=== PATIENT | female | born 1990 | race Two or more races ===

== ENCOUNTER 2017-01-05 20:11 | Emergency (ER) | payer MEDICAID, OTHER ==
[~2017-01-05] VITALS: Ht 162.6 cm; Wt 88.2 kg
[2017-01-05] MEDS ORDERED: ONDANSETRON HCL 4 MG TABLET PO ONE (20:45)
[2017-01-05 20:52] LABS: BASOPHILS % (AUTO) 0.6 % (0.0-2.0); EOSINOPHILS % (AUTO) 0.7 % (1.0-6.0); HEMATOCRIT 36.2 % (36-46); HEMOGLOBIN 11.9 g/dL (12.0-16.0); LYMPHOCYTES # (AUTO) 3.6 K/uL (1.0-4.8); LYMPHOCYTES % (AUTO) 26.9 % (22.0-44.0); MEAN CORPUSCULAR HEMOGLOBIN 29.3 pg (26.0-34.0); MEAN CORPUSCULAR HGB CONC 32.9 G/dL (31.0-37.0); MEAN CORPUSCULAR VOLUME 89 fL (80-100); MONOCYTES # (AUTO) 0.8 K/uL (0.1-1.0); MONOCYTES % (AUTO) 6.2 % (2.0-9.0); NEUTROPHILS # (AUTO) 8.8 K/uL (1.8-7.7); NEUTROPHILS % (AUTO) 65.6 % (40.0-70.0); PLATELET COUNT (AUTO) 427 K/uL (150-450); RED BLOOD CELL COUNT(AUTO) 4.05 MIL/uL (4.00-5.20); RED CELL DISTRIBUTION WIDTH 13.3 % (11.5-14.5); WHITE BLOOD COUNT (AUTO) 13.4 K/uL (4.5-11.0)
[2017-01-05 21:03] LABS: ANION GAP 10 mmol/L (8-16); CALCIUM, TOTAL 8.5 mg/dL (8.8-10.5); CARBON DIOXIDE 25 mmol/L (22-29); CHLORIDE 100 mmol/L (98-107); CREATININE 0.71 mg/dL (0.60-1.30); GLOMERULAR FILTR. RATE CALC > 60 mL/min (>60); POTASSIUM 3.7 mmol/L (3.5-5.1); SODIUM SERUM 135 mmol/L (136-145); UREA NITROGEN, BLOOD 12 mg/dL (7-18)
[2017-01-05 21:10] LABS: ALANINE AMINOTRANSFERASE 17 U/L (12-78); ALBUMIN 3.3 g/dL (3.4-5.0); ASPARTATE AMINOTRANSFERASE 14 U/L (15-37); BILIRUBIN,TOTAL 0.2 mg/dL (0.1-1.0); TOTAL PROTEIN, SERUM 7.3 g/dL (6.4-8.2)
[2017-01-05 22:21] VITALS: BP 121/75
== END 2017-01-05 22:21 | disposition home or self-care (01) ==
LOC: EMS 20:15
DX: R11.2 Nausea with vomiting, unspecified (principal); F15.90 Other stimulant use, unspecified, uncomplicated; F17.210 Nicotine dependence, cigarettes, uncomplicated
CPT/HCPCS: 80053; 83690; 84702; 84703; 85025; 99284; Q0162

== ENCOUNTER 2018-04-05 10:18 | Emergency (ER) | payer MEDICAID, OTHER ==
[~2018-04-05] VITALS: Ht 167.6 cm; Wt 86.4 kg
[2018-04-05] MEDS ORDERED: [UNRECOGNIZED DRUG - OTHER] VG (10:41)
[2018-04-05 11:07] VITALS: BP 142/73
[2018-04-05] MEDS ORDERED: IBUPROFEN 600 MG TABLET PO ONE (11:15)
[2018-04-05 11:56] LABS: APPEARANCE,URINE CLOUDY (CLEAR); BILIRUBIN,URINE NEGATIVE (NEGATIVE); GLUCOSE, URINE (UA) NEGATIVE (NEGATIVE); KETONES,URINE NEGATIVE (NEGATIVE); LEUKOCYTE ESTERASE ,URINE SMALL (NEGATIVE); NITRATE,URINE NEGATIVE (NEGATIVE); OCCULT BLOOD,URINE SMALL (NEGATIVE); PROTEIN,URINE NEGATIVE (NEGATIVE); UROBILINOGEN,URINE 0.2 mg/dL (<=1.0)
[2018-04-05 12:07] LABS: BACTERIA,URINE None Seen /HPF (None Seen); RBC,URINE 0-2 /HPF (0-2); SQUAMOUS EPITHELIAL CELL,UR Moderate /LPF (None Seen)
== END 2018-04-05 12:43 | disposition home or self-care (01) ==
LOC: EMS 10:18
DX: R10.9 Unspecified abdominal pain (principal); F17.210 Nicotine dependence, cigarettes, uncomplicated; F19.90 Other psychoactive substance use, unspecified, uncomplicated; Z59.0 Homelessness
CPT/HCPCS: 99283; 99406

== ENCOUNTER 2019-08-26 03:22 | Emergency (ER) | payer OTHER ==
[~2019-08-26] VITALS: Ht 162.6 cm; Wt 79.5 kg
[~2019-08-26 03:22] MED LIST: [UNRECOGNIZED DRUG - OTHER] VG
[2019-08-26 03:26] VITALS: BP 121/71
[2019-08-26] MEDS ORDERED: ACETAMINOPHEN 500 MG TABLET PO ONE (03:45)
[2019-08-26] MEDS ORDERED: ONDANSETRON HCL 4 MG TABLET PO ONE (03:45)
[2019-08-26 03:58] LABS: RAPID GROUP A STREP NEGATIVE (NEGATIVE)
[2019-08-26 04:14] LABS: INFLUENZA TYPE A NEGATIVE FOR TYPE A (NEGATIVE); INFLUENZA TYPE B NEGATIVE FOR TYPE B (NEGATIVE)
== END 2019-08-26 05:14 | disposition home or self-care (01) ==
LOC: EMS 03:22
DX: R05 Cough (principal); R11.2 Nausea with vomiting, unspecified; M79.10 Myalgia, unspecified site; R06.02 Shortness of breath; F17.210 Nicotine dependence, cigarettes, uncomplicated; F12.90 Cannabis use, unspecified, uncomplicated; F19.90 Other psychoactive substance use, unspecified, uncomplicated; Z59.0 Homelessness
CPT/HCPCS: 71046; 81025; 87430; 87804; 99284; 99406; Q0162

== ENCOUNTER 2021-07-26 10:11 | Inpatient (IN) | payer OTHER ==
[~2021-07-26] VITALS: Ht 170.2 cm; Wt 59.8 kg
[2021-07-26 10:45] LABS: COVID AG,FIA SOURCE NASOPHARYNGEAL
[2021-07-26 10:46] LABS: BASOPHILS % (AUTO) 0.4 % (0.0-2.0); EOSINOPHILS % (AUTO) 0.2 % (1.0-6.0); HEMATOCRIT 37.7 % (36-46); HEMOGLOBIN 12.3 g/dL (12.0-16.0); LYMPHOCYTES # (AUTO) 1.1 K/uL (1.0-4.8); LYMPHOCYTES % (AUTO) 18.3 % (22.0-44.0); MEAN CORPUSCULAR HEMOGLOBIN 29.5 pg (26.0-34.0); MEAN CORPUSCULAR HGB CONC 32.7 G/dL (31.0-37.0); MEAN CORPUSCULAR VOLUME 90 fL (80-100); MONOCYTES # (AUTO) 0.2 K/uL (0.1-1.0); MONOCYTES % (AUTO) 3.9 % (2.0-9.0); NEUTROPHILS # (AUTO) 4.6 K/uL (1.8-7.7); NEUTROPHILS % (AUTO) 77.2 % (40.0-70.0); PLATELET COUNT (AUTO) 373 K/uL (150-450); RED BLOOD CELL COUNT(AUTO) 4.17 MIL/uL (4.00-5.20); RED CELL DISTRIBUTION WIDTH 13.2 % (11.5-14.5)
[2021-07-26 10:55] LABS: ANION GAP 5 mmol/L (8-16); CALCIUM, TOTAL 8.7 mg/dL (8.8-10.5); CARBON DIOXIDE 27 mmol/L (22-29); CHLORIDE 105 mmol/L (98-107); CREATININE 0.58 mg/dL (0.60-1.30); GLOMERULAR FILTR. RATE CALC > 60 mL/min (>60); GLUCOSE,RANDOM 109 mg/dL (70-110); POTASSIUM 4.1 mmol/L (3.5-5.1); SODIUM SERUM 137 mmol/L (136-145); UREA NITROGEN, BLOOD 11 mg/dL (7-18)
[2021-07-26 11:00] LABS: ALANINE AMINOTRANSFERASE 23 U/L (12-78); ALBUMIN 3.5 g/dL (3.4-5.0); ALKALINE PHOSPHATASE 51 U/L (46-116); ASPARTATE AMINOTRANSFERASE 18 U/L (15-37); BILIRUBIN,TOTAL 0.5 mg/dL (0.1-1.0); TOTAL PROTEIN, SERUM 7.5 g/dL (6.4-8.2)
[2021-07-26 11:45] VITALS: BP 124/89
[2021-07-26] MEDS ORDERED: SODIUM CHLORIDE 0.9% 1,000 ML IV ONE (13:30)
[2021-07-26] MEDS ORDERED: DICYCLOMINE HCL 10 MG CAPSULE PO PRN (13:30)
[2021-07-26 15:37] VITALS: BP 99/61
[2021-07-26] MEDS: LORazepam 2 MG/ML VIAL IVP PRN (18:00)
[2021-07-26] MEDS: ACETAMINOPHEN/CODEINE 300-15 MG TABLET PO PRN (18:00)
[2021-07-26 20:19] VITALS: BP 108/55
[2021-07-26 23:29] VITALS: BP 116/60
[2021-07-27] MEDS: ACETAMINOPHEN/CODEINE 300-15 MG TABLET PO PRN ×3 (00:07→20:43)
[2021-07-27] MEDS: TEMAZEPAM 15 MG CAPSULE PO SCH ×2 (00:08→20:44)
[2021-07-27] MEDS: LORazepam 2 MG/ML VIAL IVP PRN ×2 (01:15→09:24)
[2021-07-27 04:20] VITALS: BP 104/72
[2021-07-27 07:38] VITALS: BP 102/47
[2021-07-27 08:33] LABS: AMPHET/METH SCREEN,URINE POSITIVE (NEGATIVE); BARBITURATE SCREEN, URINE NEGATIVE (NEGATIVE); BENZODIAZEPINES SCREEN,URINE NEGATIVE (NEGATIVE); CANNABINOID SCREEN,URINE POSITIVE (NEGATIVE); COCAINE SCREEN,URINE NEGATIVE (NEGATIVE); METHADONE SCREEN, URINE NEGATIVE (NEGATIVE); OPIATE SCREEN,URINE POSITIVE (NEGATIVE)
[2021-07-27 08:36] LABS: PHENCYCLIDINE SCREEN,URINE NEGATIVE (NEGATIVE)
[2021-07-27 11:00] VITALS: BP 104/71
[2021-07-27] MEDS ORDERED: IBUPROFEN 200 MG TABLET PO PRN (14:00)
[2021-07-27 15:25] VITALS: BP 108/69
[2021-07-27 20:34] VITALS: BP 120/70
[2021-07-27] MEDS ORDERED: IBUPROFEN 400 MG TABLET PO PRN (21:13)
[2021-07-28 06:01] VITALS: BP 101/66
[2021-07-28] MEDS: METOCLOPRAMIDE HCL 5 MG/ML 2 ML VIAL IVP PRN (06:53)
[2021-07-28 07:50] VITALS: BP 116/63
[2021-07-28] MEDS: ACETAMINOPHEN/CODEINE 300-15 MG TABLET PO PRN ×3 (08:27→20:50)
[2021-07-28 11:33] VITALS: BP 104/55
[2021-07-28] MEDS: SCOPOLAMINE HYDROBROMIDE 1 MG/72 HOUR PATCH TD SCH (14:10)
[2021-07-28 15:50] VITALS: BP 114/73
[2021-07-28] MEDS: HydrOXYzine PAMOATE 50 MG CAPSULE PO PRN (16:14)
[2021-07-28] MEDS ORDERED: CloNIDine HCL 0.1 MG TABLET PO PRN (16:15)
[2021-07-28] MEDS ORDERED: DICYCLOMINE HCL 10 MG CAPSULE PO PRN (16:15)
[2021-07-28] MEDS ORDERED: MAG HYDROX/AL HYDROX/SIMETH ES 30 ML SUSPENSION UDCUP PO PRN (16:15)
[2021-07-28] MEDS: LOPERAMIDE HCL 2 MG CAPSULE PO PRN (16:18)
[2021-07-28 20:50] VITALS: BP 100/64
[2021-07-28] MEDS: TEMAZEPAM 15 MG CAPSULE PO SCH (20:50)
[2021-07-29] MEDS: ACETAMINOPHEN/CODEINE 300-15 MG TABLET PO PRN ×3 (00:58→14:44)
[2021-07-29] MEDS: HydrOXYzine PAMOATE 50 MG CAPSULE PO PRN ×2 (02:37→06:02)
[2021-07-29] MEDS: IBUPROFEN 600 MG TABLET PO PRN ×3 (02:41→18:53)
[2021-07-29 02:43] VITALS: BP 111/55
[2021-07-29 07:27] VITALS: BP 107/57
[2021-07-29] MEDS: METOCLOPRAMIDE HCL 5 MG/ML 2 ML VIAL IVP PRN (08:58)
[2021-07-29] MEDS: NICOTINE 21 MG/24 HOUR PATCH TD SCH (14:38)
[2021-07-29] MEDS: LIDOCAINE 5% TRANSDERMAL PATCH TD SCH (14:41)
[2021-07-29] MEDS: TEMAZEPAM 15 MG CAPSULE PO SCH (21:01)
[2021-07-29] MEDS: -LIDODERM PATCH NOTE- MISC SCH (21:02)
[2021-07-29 21:03] VITALS: BP 109/50
[2021-07-29] MEDS: LORazepam 2 MG/ML VIAL IVP PRN (23:43)
[2021-07-30 04:00] VITALS: BP 114/58
[2021-07-30] MEDS: LOPERAMIDE HCL 2 MG CAPSULE PO PRN ×2 (04:48→18:15)
[2021-07-30] MEDS: ACETAMINOPHEN/CODEINE 300-15 MG TABLET PO PRN ×2 (04:56→17:52)
[2021-07-30 08:07] VITALS: BP 104/58
[2021-07-30] MEDS: NICOTINE 21 MG/24 HOUR PATCH TD SCH (09:16)
[2021-07-30] MEDS: LIDOCAINE 5% TRANSDERMAL PATCH TD SCH (09:17)
[2021-07-30] MEDS: HydrOXYzine PAMOATE 50 MG CAPSULE PO PRN ×2 (09:20→14:23)
[2021-07-30] MEDS: IBUPROFEN 600 MG TABLET PO PRN (12:42)
[2021-07-30 20:08] VITALS: BP 111/66
[2021-07-30] MEDS: TEMAZEPAM 15 MG CAPSULE PO SCH (20:48)
[2021-07-30] MEDS: -LIDODERM PATCH NOTE- MISC SCH (20:57)
[2021-07-31] MEDS: IBUPROFEN 600 MG TABLET PO PRN ×2 (03:26→14:56)
[2021-07-31] MEDS: ACETAMINOPHEN/CODEINE 300-15 MG TABLET PO PRN ×3 (04:56→21:27)
[2021-07-31 05:00] VITALS: BP 121/71
[2021-07-31 06:45] LABS: ANION GAP 7 mmol/L (8-16); CALCIUM, TOTAL 8.4 mg/dL (8.8-10.5); CARBON DIOXIDE 23 mmol/L (22-29); CHLORIDE 107 mmol/L (98-107); CREATININE 0.69 mg/dL (0.60-1.30); FREE T4 (FREE THYROXINE) 0.94 ng/dL (0.76-1.46); GLOMERULAR FILTR. RATE CALC > 60 mL/min (>60); GLUCOSE,RANDOM 111 mg/dL (70-110); POTASSIUM 3.5 mmol/L (3.5-5.1); SODIUM SERUM 137 mmol/L (136-145); THYROID STIMULATING HORMONE 0.45 uIU/mL (0.36-3.74); UREA NITROGEN, BLOOD 10 mg/dL (7-18)
[2021-07-31 06:48] LABS: BASOPHILS % (AUTO) 1.1 % (0.0-2.0); EOSINOPHILS % (AUTO) 0.8 % (1.0-6.0); HEMATOCRIT 36.5 % (36-46); HEMOGLOBIN 12.3 g/dL (12.0-16.0); LYMPHOCYTES # (AUTO) 3.5 K/uL (1.0-4.8); LYMPHOCYTES % (AUTO) 38.3 % (22.0-44.0); MEAN CORPUSCULAR HEMOGLOBIN 30.2 pg (26.0-34.0); MEAN CORPUSCULAR HGB CONC 33.7 G/dL (31.0-37.0); MEAN CORPUSCULAR VOLUME 90 fL (80-100); MONOCYTES # (AUTO) 0.6 K/uL (0.1-1.0); MONOCYTES % (AUTO) 6.3 % (2.0-9.0); NEUTROPHILS # (AUTO) 4.8 K/uL (1.8-7.7); NEUTROPHILS % (AUTO) 53.5 % (40.0-70.0); PLATELET COUNT (AUTO) 408 K/uL (150-450); RED BLOOD CELL COUNT(AUTO) 4.07 MIL/uL (4.00-5.20); RED CELL DISTRIBUTION WIDTH 13.2 % (11.5-14.5)
[2021-07-31 08:03] VITALS: BP 113/73
[2021-07-31] MEDS: HydrOXYzine PAMOATE 50 MG CAPSULE PO PRN (09:26)
[2021-07-31] MEDS: NICOTINE 21 MG/24 HOUR PATCH TD SCH (11:19)
[2021-07-31] MEDS: LIDOCAINE 5% TRANSDERMAL PATCH TD SCH (11:19)
[2021-07-31] MEDS: SCOPOLAMINE HYDROBROMIDE 1 MG/72 HOUR PATCH TD SCH (11:20)
[2021-07-31 15:01] VITALS: BP 101/63
[2021-07-31 20:05] VITALS: BP 106/54
[2021-07-31] MEDS: TEMAZEPAM 15 MG CAPSULE PO SCH (20:27)
[2021-07-31] MEDS: -LIDODERM PATCH NOTE- MISC SCH (20:40)
[2021-08-01] MEDS: IBUPROFEN 600 MG TABLET PO PRN (00:55)
[2021-08-01 04:35] VITALS: BP 109/67
[2021-08-01] MEDS: ACETAMINOPHEN/CODEINE 300-15 MG TABLET PO PRN (05:26)
[2021-08-01] MEDS: METOCLOPRAMIDE HCL 5 MG/ML 2 ML VIAL IVP PRN (05:45)
[2021-08-01 07:36] VITALS: BP 101/68
[2021-08-01] MEDS: NICOTINE 21 MG/24 HOUR PATCH TD SCH (08:13)
[2021-08-01] MEDS: LIDOCAINE 5% TRANSDERMAL PATCH TD SCH (09:00)
[2021-08-01 15:27] VITALS: BP 92/56
== END 2021-08-01 15:55 | DRG 641 ==
LOC: EMS 10:15 → 6S 11:11 → EMS 11:13 → 6S 13:41
PROVIDERS: ADMIT Internal Medicine; ATTEND Internal Medicine
DX: E86.0 Dehydration (principal); F10.139 Alcohol abuse with withdrawal, unspecified; F11.23 Opioid dependence with withdrawal; Z20.822 Contact with and (suspected) exposure to COVID-19; Y90.9 Presence of alcohol in blood, level not specified; F41.9 Anxiety disorder, unspecified; F29 Unspecified psychosis not due to a substance or known physiological condition; Z87.891 Personal history of nicotine dependence; Z91.14 Patient's other noncompliance with medication regimen
CPT/HCPCS: 70551; 72141; 80048; 80053; 84439; 84443; 84703; 85025; 99285; G0480; J2060; J2765; J7030

== ENCOUNTER 2024-06-18 12:11 | Inpatient (IN) | payer OTHER ==
[~2024-06-18] VITALS: Ht 157.5 cm; Wt 76.8 kg
[2024-06-18 12:39] LABS: BASOPHILS % (AUTO) 0.8 % (0.0-2.0); EOSINOPHILS % (AUTO) 0.1 % (1.0-6.0); HEMATOCRIT 41.3 % (36-46); HEMOGLOBIN 13.5 g/dL (12.0-16.0); LYMPHOCYTES # (AUTO) 2.7 K/uL (1.0-4.8); LYMPHOCYTES % (AUTO) 28.3 % (22.0-44.0); MEAN CORPUSCULAR HEMOGLOBIN 29.5 pg (26.0-34.0); MEAN CORPUSCULAR HGB CONC 32.6 G/dL (31.0-37.0); MEAN CORPUSCULAR VOLUME 91 fL (80-100); MONOCYTES # (AUTO) 0.5 K/uL (0.1-1.0); MONOCYTES % (AUTO) 5.7 % (2.0-9.0); NEUTROPHILS # (AUTO) 6.3 K/uL (1.8-7.7); NEUTROPHILS % (AUTO) 65.1 % (40.0-70.0); PLATELET COUNT (AUTO) 397 K/uL (150-450); RED BLOOD CELL COUNT(AUTO) 4.57 MIL/uL (4.00-5.20); RED CELL DISTRIBUTION WIDTH 13.9 % (11.5-14.5); WHITE BLOOD COUNT (AUTO) 9.6 K/uL (4.5-11.0)
[2024-06-18 12:59] LABS: ANION GAP 16 mmol/L (8-16); CALCIUM, TOTAL 8.7 mg/dL (8.8-10.5); CARBON DIOXIDE 20 mmol/L (22-29); CHLORIDE 102 mmol/L (98-107); CREATININE 0.67 mg/dL (0.60-1.30); GLOMERULAR FILTR. RATE CALC > 60 mL/min (>60); GLUCOSE,RANDOM 91 mg/dL (70-110); POTASSIUM 3.6 mmol/L (3.5-5.1); SODIUM SERUM 138 mmol/L (136-145); UREA NITROGEN, BLOOD 11 mg/dL (7-18)
[2024-06-18 13:04] LABS: ALANINE AMINOTRANSFERASE 13 U/L (12-78); ALBUMIN 3.9 g/dL (3.4-5.0); ALKALINE PHOSPHATASE 61 U/L (46-116); ASPARTATE AMINOTRANSFERASE 12 U/L (15-37); BILIRUBIN,TOTAL 0.5 mg/dL (0.1-1.0)
[2024-06-18 13:06] LABS: ALCOHOL, BLOOD (SERUM) < 3 mg/dL (0-10)
[2024-06-18] MEDS: ACETAMINOPHEN 500 MG TABLET PO ONE (13:13)
[2024-06-18] MEDS: IBUPROFEN 600 MG TABLET PO ONE (13:13)
[2024-06-18 15:21] VITALS: BP 134/82; PULSE 69; RESP 20; TEMP 98.2; O2SAT 100
[2024-06-18] MEDS ORDERED: MAG HYDROX/ALUMINUM HYD/SIMETH ES 30 ML SUSPENSION UDCUP PO PRN (15:30)
[2024-06-18] MEDS ORDERED: DICYCLOMINE HCL 10 MG CAPSULE PO PRN (15:30)
[2024-06-18] MEDS ORDERED: LOPERAMIDE HCL 2 MG/15 ML SUSPENSION UDCUP PO PRN (15:30)
[2024-06-18] MEDS ORDERED: IBUPROFEN 600 MG TABLET PO PRN (15:30)
[2024-06-18] MEDS ORDERED: BISACODYL 10 MG RECTAL RECTAL SUPPOSITORY PR PRN (15:30)
[2024-06-18] MEDS ORDERED: ALBUTEROL SULFATE 2.5 MG/0.5 ML NEB SOLUTION NEB PRN (15:30)
[2024-06-18] MEDS ORDERED: CloNIDine HCL 0.1 MG TABLET PO PRN (15:30)
[2024-06-18] MEDS ORDERED: BACLOFEN 10 MG TABLET PO PRN (15:30)
[2024-06-18] MEDS ORDERED: HydrOXYzine PAMOATE 50 MG CAPSULE PO PRN (15:30)
[2024-06-18] MEDS ORDERED: ONDANSETRON HCL 4 MG/2 ML VIAL IVP PRN (15:30)
[2024-06-18] MEDS ORDERED: ACETAMINOPHEN 325 MG TABLET PO PRN (15:30)
[2024-06-18] MEDS ORDERED: IPRATROPIUM BROMIDE 0.5 MG/2.5 ML NEB SOLUTION NEB PRN (15:30)
[2024-06-18] MEDS ORDERED: ZOLPIDEM TARTRATE 5 MG TABLET PO PRN (15:30)
[2024-06-18] MEDS ORDERED: TraZODone HCL 50 MG TABLET PO PRN (15:30)
[2024-06-18] MEDS: HEPARIN SODIUM,PORCINE 5,000 UNITS/ML VIAL SQ SCH (16:49)
[2024-06-18] MEDS: MAGNESIUM HYDROXIDE SUSPENSION 30 ML UDCUP PO PRN (16:49)
[2024-06-18] MEDS: SODIUM CHLORIDE 0.45% 1,000 ML IV SCH (16:49)
[2024-06-18] MEDS: BUPRENORPHINE HCL/NALOXONE HCL 2-0.5 MG SUBLINGUAL TABLET SL ONE (17:56)
[2024-06-18 18:28] VITALS: BP 119/55; PULSE 51; RESP 18; TEMP 98.1; O2SAT 95
[2024-06-18] MEDS: ACETAMINOPHEN 325 MG TABLET PO PRN (18:40)
[2024-06-18] MEDS: PROMETHAZINE HCL 25 MG TABLET PO PRN (18:40)
[2024-06-18 19:29] VITALS: BP 114/66; PULSE 51; RESP 20; TEMP 98.3; O2SAT 97
[2024-06-18 20:08] LABS: PH,URINE DRUG SCREEN 6.5 (5.0-8.0)
[2024-06-18 20:27] LABS: ALCOHOL, URINE DRUG SCREEN NEGATIVE (NEGATIVE); AMPHET/METH SCREEN,URINE NEGATIVE (NEGATIVE); BARBITURATE SCREEN, URINE NEGATIVE (NEGATIVE); BENZODIAZEPINES SCREEN,URINE NEGATIVE (NEGATIVE); CANNABINOID SCREEN,URINE POSITIVE (NEGATIVE); COCAINE SCREEN,URINE NEGATIVE (NEGATIVE); METHADONE SCREEN, URINE NEGATIVE (NEGATIVE); OPIATE SCREEN,URINE NEGATIVE (NEGATIVE); PHENCYCLIDINE SCREEN,URINE NEGATIVE (NEGATIVE)
[2024-06-19 05:27] VITALS: BP 129/89; PULSE 50; RESP 20; TEMP 97.8; O2SAT 99
[2024-06-19] MEDS: PANTOPRAZOLE SODIUM 40 MG DR TABLET PO SCH (08:39)
[2024-06-19] MEDS: BUPRENORPHINE HCL/NALOXONE HCL 2-0.5 MG SUBLINGUAL TABLET SL SCH (08:39)
[2024-06-19 08:51] VITALS: BP 98/66; PULSE 66; RESP 19; TEMP 97.9; O2SAT 97
[2024-06-19] MEDS ORDERED: BUPR1TAB45 SL (12:22)
== END 2024-06-19 14:55 | DRG 897 ==
LOC: EMS 12:12 → EDH 15:06 → 6S 15:18
PROVIDERS: ADMIT Hospitalist; ATTEND Hospitalist
DX: F11.93 Opioid use, unspecified with withdrawal (principal); Z59.00 Homelessness unspecified; Z91.013 Allergy to seafood
CPT/HCPCS: 80053; 80307; 84703; 85025; 99285; G0480; J1644; 36415-L1; 36415-TC; J0571; J7030; Z7502; Z7610